=== PATIENT | male | born 1945 | race Caucasian/White ===

== ENCOUNTER 2017-08-09 14:13 | Inpatient (IN) | payer BC, MEDICARE ==
[2017-08-09] MEDS ORDERED: HEPARIN SODIUM,PORCINE 5,000 UNIT/ML 1 ML VIAL IV PRN (22:16)
[2017-08-09] MEDS ORDERED: HEPARIN SODIUM,PORCINE 5,000 UNIT/ML 1 ML VIAL IV ONE (22:16)
[2017-08-09 22:46] LABS: Basophils % (A) 0 %; Eosinophils # (A) 0.1 k/uL (0-0.7); Eosinophils % (A) 0 %; HCT 26.2 % (39.0-53.0); HGB 8.8 gm/dL (13.0-17.5); Lymphocytes # (A) 1.8 k/uL (1.0-4.8); Lymphocytes % (A) 9 %; MCH 31.6 pg (25.0-35.0); MCHC 33.7 g/dL (31.0-37.0); MCV 93.7 fL (80.0-100.0); Mean Platelet Volume 7.8; Monocytes # (A) 0.5 k/uL (0-1.0); Monocytes % (A) 2 %; Neutrophils % (A) 88 %; Platelet Count 263 k/uL (150-450); RDW 14.1 % (11.5-15.5); WBC 20.4 k/uL (3.8-10.6)
[2017-08-09] MEDS: MIRTAZAPINE 15 MG TAB PO SCH (22:56)
[2017-08-09] MEDS: FAMOTIDINE 20 MG TAB PO SCH (22:56)
[2017-08-09] MEDS: ATORVASTATIN 10 MG TAB PO SCH (22:56)
[2017-08-09] MEDS: HEPARIN SODIUM,PORCINE/D5W PMX 25,000 UNIT in DEXTROSE/WATER 1 500ML.BAG IV SCH (22:56)
[2017-08-09] MEDS: LACOSAMIDE 50 MG TABLET PO SCH (23:01)
[2017-08-09 23:29] LABS: Partial Thromboplastin Time 18.9 sec (22.0-30.0)
[2017-08-10 04:38] LABS: Basophils % (A) 0 %; Eosinophils # (A) 0.1 k/uL (0-0.7); Eosinophils % (A) 0 %; HCT 26.6 % (39.0-53.0); HGB 8.6 gm/dL (13.0-17.5); Lymphocytes # (A) 2.3 k/uL (1.0-4.8); Lymphocytes % (A) 12 %; MCH 31.4 pg (25.0-35.0); MCHC 32.2 g/dL (31.0-37.0); MCV 97.7 fL (80.0-100.0); Mean Platelet Volume 7.9; Monocytes # (A) 0.9 k/uL (0-1.0); Monocytes % (A) 5 %; Neutrophils # (A) 16.7 k/uL (1.3-7.7); Neutrophils % (A) 83 %; Platelet Count 251 k/uL (150-450); RBC 2.72 m/uL (4.30-5.90); RDW 14.3 % (11.5-15.5)
[2017-08-10] MEDS ORDERED: ALPRAZolam 0.25 MG TAB PO PRN (09:06)
[2017-08-10] MEDS ORDERED: NITROGLYCERIN SL TABS 0.4 MG TAB SUBLINGUAL PRN (09:06)
[2017-08-10] MEDS ORDERED: SODIUM CHLORIDE 0.9% 1,000 ML in EMPTY BAG 1 BAG IV ONE (09:06)
[2017-08-10] MEDS ORDERED: ASPIRIN 325 MG TAB PO STA (09:06)
[2017-08-10] MEDS ORDERED: ATORVASTATIN 80 MG TAB PO STA (09:06)
[2017-08-10] MEDS ORDERED: ALPRAZolam 0.5 MG TAB PO PRN (09:06)
[2017-08-10] MEDS: ASPIRIN 81 MG PO SCH (09:13)
[2017-08-10] MEDS: TAMSULOSIN 0.4 MG CAP.ER.24H PO SCH (09:26)
[2017-08-10] MEDS: DOCUSATE 100 MG CAP PO SCH (09:26)
[2017-08-10] MEDS: ISOSORBIDE MONONITRATE ER 30 MG TAB.ER.24H PO SCH (09:26)
[2017-08-10] MEDS: LACOSAMIDE 50 MG TABLET PO SCH ×2 (09:26→19:53)
[2017-08-10] MEDS: FAMOTIDINE 20 MG TAB PO SCH ×2 (09:26→19:53)
[2017-08-10] MEDS: VENLAFAXINE HCL 37.5 MG TAB PO SCH (09:26)
[2017-08-10] MEDS ORDERED: IPRATROPIUM-ALBUTEROL 3 ML NEB INHALATION PRN (12:17)
[2017-08-10 12:20] LABS: Glucose,Whole Blood 123 mg/dL (75-99)
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
[2017-08-10] MEDS ORDERED: IV FLUID CONTINUATION 1,000 ML IV ONE (14:10)
[2017-08-10] MEDS ORDERED: MIDAZOLAM 2 MG/2 ML VIAL ONE (14:28)
[2017-08-10] MEDS ORDERED: LIDOCAINE 2% INJ 20 MG/ML (20 ML MDV) ONE (14:28)
[2017-08-10] MEDS ORDERED: LIDOCAINE 2% INJ 20 MG/ML SQ ONE (14:31)
[2017-08-10] MEDS ORDERED: MIDAZOLAM 2 MG/2 ML VIAL IV ONE (14:32)
[2017-08-10] MEDS ORDERED: IOPAMIDOL-370 125ML BTL INJ ONE (14:49)
--- NOTE | 2017-08-10 15:26 | CC ---
CARDIAC CATHETERIZATION REPORT Mr. Rich was admitted to the [facility] with symptoms of chest pain. EKG shows intermittent T-wave inversions in the anterior leads. The cardiac enzymes were normal. In view of the significant EKG changes, patient was recommended to have a cardiac catheterization for definitive diagnosis. PROCEDURE: The right groin is prepped and draped in the usual manner and the skin was infiltrated with 2% Xylocaine. The right femoral artery was entered using Seldinger technique. A #6-Malay sheath was placed in. Selective coronary angiography was then performed in multiple projections and the left ventricular pressures were obtained. Sheath was removed and good hemostasis was achieved with the use of manual compression. HEMODYNAMICS: Left ventricular end-diastolic pressure is 16 to 20 mmHg prior to angiography. No gradient is noted across the aortic valve. SELECTIVE CORONARY ANGIOGRAPHY: Left main coronary artery is normally patent. LAD is a good caliber blood vessel and gives rise to two small size diagonal branch. Distal LAD is a small caliber blood vessel. Circumflex coronary artery gives rise to a high good-sized obtuse marginal branch. Circumflex coronary artery and its branches are normal. The right coronary artery has mild irregularity in its proximal portion and it gives rise to PDA and PLV branches which are normal. FINAL IMPRESSION: This study reveals mild coronary artery disease in the mid LAD and proximal right coronary artery. RECOMMENDATIONS: Medical treatment. MMODL / IJN: [id number] /
[2017-08-10] MEDS: IPRATROPIUM-ALBUTEROL 3 ML NEB INHALATION SCH ×2 (16:06→20:26)
[2017-08-10] MEDS ORDERED: RX INFO: IV CONTRAST WAS GIVEN 1 EACH MISC MISCELLANE PRN (16:28)
[2017-08-10] MEDS: ATORVASTATIN 10 MG TAB PO SCH (19:53)
[2017-08-10] MEDS: MIRTAZAPINE 15 MG TAB PO SCH (19:53)
[2017-08-10] MEDS: HEPARIN SODIUM,PORCINE/D5W PMX 25,000 UNIT in DEXTROSE/WATER 1 500ML.BAG IV SCH (21:16)
[2017-08-11 05:31] LABS: Basophils % (A) 0 %; Eosinophils # (A) 0.1 k/uL (0-0.7); Eosinophils % (A) 1 %; HCT 21.9 % (39.0-53.0); HGB 7.2 gm/dL (13.0-17.5); Lymphocytes # (A) 2.8 k/uL (1.0-4.8); Lymphocytes % (A) 39 %; MCH 31.8 pg (25.0-35.0); MCHC 32.8 g/dL (31.0-37.0); MCV 97.1 fL (80.0-100.0); Mean Platelet Volume 8.5; Monocytes # (A) 0.4 k/uL (0-1.0); Monocytes % (A) 5 %; Neutrophils # (A) 3.9 k/uL (1.3-7.7); Neutrophils % (A) 54 %; RBC 2.26 m/uL (4.30-5.90); RDW 15.3 % (11.5-15.5); WBC 7.2 k/uL (3.8-10.6)
[2017-08-11] MEDS: IPRATROPIUM-ALBUTEROL 3 ML NEB INHALATION SCH ×4 (08:20→19:38)
[2017-08-11 08:53] VITALS: RESP 18
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
[2017-08-11] MEDS: DOCUSATE 100 MG CAP PO SCH (10:21)
[2017-08-11] MEDS: TAMSULOSIN 0.4 MG CAP.ER.24H PO SCH (10:21)
[2017-08-11] MEDS: ASPIRIN 81 MG PO SCH (10:21)
[2017-08-11] MEDS: VENLAFAXINE HCL 37.5 MG TAB PO SCH (10:21)
[2017-08-11] MEDS: predniSONE 20 MG TAB PO SCH (10:21)
[2017-08-11] MEDS: FAMOTIDINE 20 MG TAB PO SCH ×2 (10:21→21:43)
[2017-08-11] MEDS: LACOSAMIDE 50 MG TABLET PO SCH ×2 (10:21→22:42)
[2017-08-11] MEDS: ISOSORBIDE MONONITRATE ER 30 MG TAB.ER.24H PO SCH (10:21)
--- NOTE | 2017-08-11 10:48 | P.PN ---
Subjective 69-year-old admitted here after he was [facility] Which Did Not Show Any Stent Table Atherosclerotic Vascular Disease Patient Is Cleared for Discharge from Cardiology Perspective but Patient Hemoglobin Did Go down from 8.1-7.2 There Is No Clinical GI Bleed That Is No Evidence of Acute Blood Loss Anemia Appears to Have Chronic Anemia. We Will Monitor Him One More Night for Any Bleeding Patient Lives by Himself. Patient All the Cleared by Cardiology to Be Discharged Patient Is Not in COPD Exacerbation at This Time Patient Was Treated for COPD Exacerbation at [facility]. Constitutional: Denied any fatigue denied any fever. Cardio vascular: denied any chest pain, palpitations Gastrointestinal denied any nausea vomiting Pulmonary: Denied any shortness of breath cough Neurologic denied any new focal deficits Objective - Vital Signs Vital signs: Vital Signs Temp 97.7 F 08/11/17 08:00 Pulse 66 08/11/17 08:00 Resp 18 08/11/17 08:00 BP 84/51 08/11/17 08:00 Pulse Ox 94 L 08/11/17 08:00 Intake & Output 08/10/17 08/11/17 08/11/17 18:59 06:59 18:59 Intake Total 566 0 Output Total 300 Balance 566 -300 0 Weight 82.5 kg Intake: IV 400 Intake, IV Titration 166 Amount Sodium Chloride 0.9% 1, 166 000 ml In Empty Bag 1 bag @ 1 ML/KG/HR 83 mls/hr IV .Q12H3M ONE Rx#: [id number] Oral 0 0 Output: Urine 300 Other: Voiding Method Urinal Incontinent # Voids 1 - Exam PHYSICAL EXAMINATION: GENERAL: The patient is alert and oriented x3, not in any acute distress. Well developed, well nourished. HEENT: Pupils are round and equally reacting to light. EOMI. No scleral icterus. No conjunctival pallor. Normocephalic, atraumatic. No pharyngeal erythema. No thyromegaly. CARDIOVASCULAR: S1 and S2 present. No murmurs, rubs, or gallops. PULMONARY: Chest is clear to auscultation, no wheezing or crackles. ABDOMEN: Soft, nontender, nondistended, normoactive bowel sounds. No palpable organomegaly. MUSCULOSKELETAL: No joint swelling or deformity. EXTREMITIES: No cyanosis, clubbing, or pedal edema. Right below knee amputation NEUROLOGICAL: Gross neurological examination did not reveal any new focal deficits. SKIN: No rashes. - Labs CBC & Chem 7: 08/11/17 05:01 Labs: Abnormal Lab Results - Last 24 Hours (Table) 08/10/17 08/10/17 08/11/17 Range/Units 11:17 12:18 05:01 RBC 2.26 L (4.30-5.90) m/uL Hgb 7.2 L (13.0-17.5) gm/dL Hct 21.9 L (39.0-53.0) % APTT 65.0 H (22.0-30.0) sec POC Glucose (mg/dL) 123 H (75-99) mg/dL Assessment and Plan Plan: -Chest pain with EKG changes: Patient underwent cardia catheterization which did not show any significant coronary atherosclerotic occlusive disease although patient is hypotensive etiology is not clear no evidence of acute GI bleed no evidence of acute blood loss anemia etiology of chronic anemia is unknown. Will monitor 1 more night because of hypotension hemoglobin being at borderline of 7. repeat basic metabolic profile and CBC. Patient also will be transferred [facility] -COPD: Was treated for acute exacerbation, not in COPD exacerbation at this time -Benign prostatic hypertrophy -Closed head injury with a history of seizures in the past and patient is on antiseizure medications which will be continued -Hypertension patient is actually hypotensive amlodipine will be held, M.D. will be discontinued heparin was discontinued. -Gastroesophageal reflux disease -Benign prostatic hypertrophic -Hyperlipidemia -Depression for which patient is on Effexor which will be continued
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
[2017-08-11] MEDS: MIRTAZAPINE 15 MG TAB PO SCH (21:42)
[2017-08-11] MEDS: ATORVASTATIN 10 MG TAB PO SCH (21:43)
[2017-08-11] MEDS: HEPARIN SODIUM,PORCINE/D5W PMX 25,000 UNIT in DEXTROSE/WATER 1 500ML.BAG IV SCH (21:44)
[2017-08-12] MEDS: IPRATROPIUM-ALBUTEROL 3 ML NEB INHALATION SCH ×2 (07:12→10:58)
[2017-08-12] MEDS: FAMOTIDINE 20 MG TAB PO SCH (09:33)
[2017-08-12] MEDS: ISOSORBIDE MONONITRATE ER 30 MG TAB.ER.24H PO SCH (09:33)
[2017-08-12] MEDS: TAMSULOSIN 0.4 MG CAP.ER.24H PO SCH (09:33)
[2017-08-12] MEDS: DOCUSATE 100 MG CAP PO SCH (09:33)
[2017-08-12] MEDS: VENLAFAXINE HCL 37.5 MG TAB PO SCH (09:33)
[2017-08-12] MEDS: predniSONE 20 MG TAB PO SCH (09:33)
[2017-08-12] MEDS: ASPIRIN 81 MG PO SCH (09:33)
[2017-08-12] MEDS: LACOSAMIDE 50 MG TABLET PO SCH (09:36)
[2017-08-12 09:38] LABS: Anisocytosis Slight; Basophils % (A) 0 %; Eosinophils # (A) 0.1 k/uL (0-0.7); Eosinophils % (A) 1 %; HCT 26.2 % (39.0-53.0); HGB 8.6 gm/dL (13.0-17.5); Lymphocytes # (A) 3.2 k/uL (1.0-4.8); Lymphocytes % (A) 28 %; MCH 32.4 pg (25.0-35.0); MCHC 32.8 g/dL (31.0-37.0); MCV 98.8 fL (80.0-100.0); Macrocytosis Slight; Mean Platelet Volume 7.1; Monocytes # (A) 0.6 k/uL (0-1.0); Monocytes % (A) 5 %; Neutrophils # (A) 7.6 k/uL (1.3-7.7); Neutrophils % (A) 65 %; Platelet Count 271 k/uL (150-450); RBC 2.66 m/uL (4.30-5.90); RDW 16.9 % (11.5-15.5); WBC 11.7 k/uL (3.8-10.6)
[2017-08-12 09:53] LABS: Anion Gap 10 mmol/L; Blood Urea Nitrogen 19 mg/dL (9-20); Calcium 8.3 mg/dL (8.4-10.2); Carbon Dioxide 22 mmol/L (22-30); Chloride 108 mmol/L (98-107); Glucose 83 mg/dL (74-99); Potassium 3.3 mmol/L (3.5-5.1); Sodium 140 mmol/L (137-145)
[2017-08-12] MEDS ORDERED: Potassium Replacement Protocol 1 EACH MISC MISCELLANE PRN (10:57)
[2017-08-12] MEDS: POTASSIUM CHLORIDE ER 20 MEQ TAB.ER PO SCH ×2 (12:58→14:26)
--- NOTE | 2017-08-12 14:04 | P.PN ---
Subjective Progress Note Date: 08/12/17 Mr. Rich is a pleasant 71-year-old male past medical history significant for COPD and seizure disorder. He underwent cardiac catheterization per Dr. Davis for symptoms of chest pain. The study revealed mild coronary artery disease withing the mid LAD and proximal RCA, medical therapy recommended. Amlodipine has been discontinued secondary to hypotension. Hgb has been running low, repeat today up to 8.6 from 7.2 yesterday. WBC 11.7 down from 20 on admission, platelets 271, sodium 140, potassium 3.3, creatinine 0.8 to. Blood pressure 95/58 heart rate 68 afebrile maintaining oxygen saturation on nasal cannula. He continues to be maintained on aspirin 81 mg daily, atorvastatin 10 mg daily and imdur 30 mg daily. Denies chest pain, shortness of breath, dizziness, nausea, vomiting or diaphoresis. Telemetry tracings unremarkable. Objective - Vital Signs Vital signs: Vital Signs Temp 97.4 F L 08/12/17 05:49 Pulse 70 08/12/17 11:09 Resp 18 08/12/17 05:49 BP 95/58 08/12/17 05:49 Pulse Ox 96 08/12/17 05:49 Intake & Output 08/11/17 08/12/17 08/12/17 18:59 06:59 18:59 Intake Total 1245 Output Total 1000 Balance 1245 -1000 Weight 88.5 kg Intake: Oral 1245 Output: Urine 1000 - Exam GENERAL: Well-appearing, well-nourished and in no acute distress. NECK: Supple without JVD or thyromegaly. LUNGS: Breath sounds clear to auscultation bilaterally. Respiration equal and unlabored. No wheezes, rales or rhonchi. HEART: Regular rate and rhythm without murmurs, rubs or gallops. S1 and S2 heard. EXTREMITIES: Normal range of motion, no edema. No clubbing or cyanosis. Peripheral pulses intact and strong. - Labs CBC & Chem 7: 08/12/17 08:35 08/12/17 08:35 Labs: Abnormal Lab Results - Last 24 Hours (Table) 08/12/17 08/12/17 Range/Units 08:35 08:35 WBC 11.7 H (3.8-10.6) k/uL RBC 2.66 L (4.30-5.90) m/uL Hgb 8.6 L (13.0-17.5) gm/dL Hct 26.2 L (39.0-53.0) % RDW 16.9 H (11.5-15.5) % Potassium 3.3 L (3.5-5.1) mmol/L Chloride 108 H (98-107) mmol/L Calcium 8.3 L (8.4-10.2) mg/dL Assessment and Plan Assessment: ASSESSMENT 1. Chest pain, atypical. Cardiac catheterization performed reveals mild CAD, medical therapy recommended. Imdur has been added. 2. Anemia, unknown etiology 3. History of hypertension maintained on amlodipine, currently hypotensive amlodipine being held. 4. History of right [id number] amputation 5. History of hepatitis C 6. COPD 7. Leukocytosis 8. Dyslipidemia PLAN Recommend holding Imdur for low blood pressure. Follow up with Dr. Davis in 1 week. Keep blood pressure log and take to follow up visit. Discussion for resuming amlodipine and imdur can be during follow up visit. Medical team to address etiology of anemia. Nurse Practitioner note has been reviewed, I agree with a documented findings and plan of care. Patient was seen and examined.
--- NOTE | 2017-08-12 14:41 | P.DS ---
Providers Date of admission: 08/09/17 20:02 Attending physician: Alysa Hinds Consults: 08/09/17 22:17 Consult Physician Routine Consulting Provider: Fernando Barrera Consult Reason/Comments: CHEST PAIN Do you want consulting provider notified?: Yes, Notify in am Placement Type Exists?: Yes Primary care physician: Alysa Hinds [facility] Course: 69-year-old admitted here after he was transferred from the [facility] Which Did Not Show Any Stent Table Atherosclerotic Vascular Disease Patient Is Cleared for Discharge from Cardiology Perspective but Patient Hemoglobin Did Go down from 8.1-7.2 There Is No Clinical GI Bleed That Is No Evidence of Acute Blood Loss Anemia Appears to Have Chronic Anemia. We Will Monitor Him One More Night for Any Bleeding Patient Lives by Himself. Patient All the Cleared by Cardiology to Be Discharged Patient Is Not in COPD Exacerbation at This Time Patient Was Treated for COPD Exacerbation at [facility]. 08/12/2017 Patient is feeling much better today and blood pressure improved to 90 systolic imbued will be discontinued amlodipine was discontinued patient's hemoglobin is 8.6. Patient declined any home care. PHYSICAL EXAMINATION: GENERAL: The patient is alert and oriented x3, not in any acute distress. Well developed, well nourished. HEENT: Pupils are round and equally reacting to light. EOMI. No scleral icterus. No conjunctival pallor. Normocephalic, atraumatic. No pharyngeal erythema. No thyromegaly. CARDIOVASCULAR: S1 and S2 present. No murmurs, rubs, or gallops. PULMONARY: Chest is clear to auscultation, no wheezing or crackles. ABDOMEN: Soft, nontender, nondistended, normoactive bowel sounds. No palpable organomegaly. MUSCULOSKELETAL: No joint swelling or deformity. EXTREMITIES: No cyanosis, clubbing, or pedal edema. Right below knee amputation NEUROLOGICAL: Gross neurological examination did not reveal any new focal deficits. SKIN: No rashes. Assessment and Plan Plan: -Chest pain with EKG changes: Patient underwent cardia catheterization which did not show any significant coronary atherosclerotic occlusive disease although -COPD: Was treated for acute exacerbation, not in COPD exacerbation at this time -Benign prostatic hypertrophy -Closed head injury with a history of seizures in the past and patient is on antiseizure medications which will be continued -Hypertension patient is actually hypotensive amlodipine will be discontinued -Gastroesophageal reflux disease -Benign prostatic hypertrophic -Hyperlipidemia -Depression for which patient is on Effexor which will be continued Plan - Discharge Summary New Discharge Prescriptions: New Budesonide-Formot 160-4.5 Mcg [Symbicort 160-4.5 Mcg Inhaler] 2 puff INHALATION BID #1 inhaler predniSONE 10 mg PO DAILY #30 tab Atorvastatin Calcium [Lipitor] 20 mg PO HS #30 tab Nitroglycerin Sl Tabs [Nitrostat] 0.4 mg SUBLINGUAL Q5M PRN #30 tab PRN Reason: Chest Pain Continue Venlafaxine HCl [Effexor] 37.5 mg PO DAILY Mirtazapine [Remeron] 15 mg PO HS Aspirin EC [Ecotrin Low Dose] 81 mg PO DAILY Lacosamide [Vimpat] 100 mg PO BID Atorvastatin [Lipitor] 10 mg PO HS Tamsulosin [Flomax] 0.4 mg PO DAILY Ranitidine HCl 150 mg PO BID Discontinued amLODIPine [Norvasc] 5 mg PO DAILY Discharge Medication List Mirtazapine [Remeron] 15 mg PO HS 11/27/14 [History] Venlafaxine HCl [Effexor] 37.5 mg PO DAILY 11/27/14 [History] Aspirin EC [Ecotrin Low Dose] 81 mg PO DAILY 08/09/17 [History] Atorvastatin [Lipitor] 10 mg PO HS 08/09/17 [History] Lacosamide [Vimpat] 100 mg PO BID 08/09/17 [History] Ranitidine HCl 150 mg PO BID 08/09/17 [History] Tamsulosin [Flomax] 0.4 mg PO DAILY 08/09/17 [History] Atorvastatin Calcium [Lipitor] 20 mg PO HS #30 tab 08/12/17 [Rx] Budesonide-Formot 160-4.5 Mcg [Symbicort 160-4.5 Mcg Inhaler] 2 puff INHALATION BID #1 inhaler 08/12/17 [Rx] Nitroglycerin Sl Tabs [Nitrostat] 0.4 mg SUBLINGUAL Q5M PRN #30 tab 08/12/17 [Rx ] predniSONE 10 mg PO DAILY #30 tab 08/12/17 [Rx] Follow up Appointment(s)/Referral(s): Fam Barlow DO [STAFF PHYSICIAN] - 08/19/17 11:15 am (Appointment with JON Bowling) Abdiel Davis MD [STAFF PHYSICIAN] - 08/15/17 2:15 pm (Tuesday) Patient Instructions/Handouts: *Surgery [facility] - After Heart Catheterization - Liquid Flavor Compounder Instructions, Left Heart Catheterization (DC) Activity/Diet/Wound Care/Special Instructions: Low fat diet. Activity as tolerated. Up with prosthetic. Fall precautions. Discharge Disposition: HOME SELF-CARE
[2017-08-12 15:07] VITALS: BP 93/61; PULSE 88; TEMP 97.3
== END 2017-08-12 15:09 | disposition home or self-care (01) | DRG 287 ==
LOC: 6SEL 20:02 → EEVIPCON 20:02 → 4MS4W 08-11 18:15
PROVIDERS: ADMIT Hospitalist; ATTEND Hospitalist
PROC: 4A023N7 Measurement of Cardiac Sampling and Pressure, Left Heart, Percutaneous Approach (ICD-10-PCS; principal; 2017-08-10 14:10)
PROC: B2111ZZ Fluoroscopy of Multiple Coronary Arteries using Low Osmolar Contrast (ICD-10-PCS; principal; 2017-08-10 14:10)
PROC: B2151ZZ Fluoroscopy of Left Heart using Low Osmolar Contrast (ICD-10-PCS; principal; 2017-08-10 14:10)
DX: R07.9 Chest pain, unspecified (principal); D64.9 Anemia, unspecified; D72.829 Elevated white blood cell count, unspecified; E78.5 Hyperlipidemia, unspecified; F32.9 Major depressive disorder, single episode, unspecified; G40.909 Epilepsy, unspecified, not intractable, without status epilepticus; I10 Essential (primary) hypertension; I25.10 Atherosclerotic heart disease of native coronary artery without angina pectoris; J44.9 Chronic obstructive pulmonary disease, unspecified; K21.9 Gastro-esophageal reflux disease without esophagitis; N40.0 Benign prostatic hyperplasia without lower urinary tract symptoms; Z79.82 Long term (current) use of aspirin; Z79.899 Other long term (current) drug therapy; Z87.891 Personal history of nicotine dependence; Z89.511 Acquired absence of right leg below knee; Z87.820 Personal history of traumatic brain injury; I95.9 Hypotension, unspecified; Z86.19 Personal history of other infectious and parasitic diseases
CPT/HCPCS: 71045; 80048; 85025; 85610; 85730; 93458; 94640

== ENCOUNTER → 2022-09-15 | Outpatient (CLI) | payer MEDICARE, OTHER ==
[2022-09-15 12:26] LABS: African American GFR (CKD) 83 (>60 ml/min/1.73 sqM); Blood Urea Nitrogen 14 mg/dL (9-20); Non-African American GFR(CKD) 72 (>60 ml/min/1.73 sqM)
--- NOTE | 2022-09-15 19:21 | CT ---
EXAMINATION TYPE: CT abdomen pelvis w con DATE OF EXAM: 09/15/2022 COMPARISON: Chest 07/27/2011 HISTORY: 76-year-old male C6 1, Malignant neoplasm of prostate. TECHNIQUE: Contiguous axial scanning of the abdomen and pelvis following administration of 100 ml Iso damian 300 IV contrast. Delayed images through the kidneys and coronal/sagittal reconstructions perform ed. CT DLP: 1317.3 mGycm Automated exposure control for dose reduction was used. FINDINGS: Heart normal size without pericardial effusion. LAD and RCA coronary artery calcifications are present. 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 Strandy atelectasis of the lower cami gs. There is a 1.2 cm posterior left basilar nodule that seems to contain some fat density. This makes a metastatic pulmonary nodule less likely. A hamartomatous possible. Reassess at follow-up. Small hiatal hernia. Nonspecific tiny 4 mm hypodensity lateral right liver lobe with small for accurate CT characterizatio n, probable tiny cyst. Portal venous system is patent. No biliary ductal dilatation. Gallbladder, right adrenal gland, right kidney, spleen, and pancreas within normal limits. A couple tiny benign cortical cysts in the left kidney measuring 8 mm. Nonspecific 9 mm left adrenal nodule was present back in 2011 suggesting a benign etiology such as a small adrenal adenoma. No dilated small bowel, free fluid, or free air. No mesenteric or retroperitoneal lymphadenopathy. Mild to moderate stool. Oral contrast progressed to the proximal sigmoid colon. Mild proximal to mid sigmoid diverticulosis. No pericolonic inflammatory change. Moderate atherosclerotic calcifications infrarenal abdominal aorta and moderate to severe within the iliac arteries. Suspect severe narrowing distal left common iliac artery and proximal right external iliac artery. Also distal right external iliac artery. Bladder urine distended. Prostate gland is enlarged and 4.5 cm wide. Suspect a high riding right test icle. No abnormal fluid collection in the pelvis or pelvic lymphadenopathy seen. Bones: Old healed fracture deformity right femoral neck. Suspect a focus of AVN posterior weightbeari ng aspect of the right femoral head measuring 2.0 cm. Mild degenerative change of both hips. Multiple chronic bilateral rib fracture deformities. No suspicious osseous lesion is identified. IMPRESSION: 1. PROSTATOMEGALY AT 4.5 CM WIDE. NO SUSPICIOUS LYMPHADENOPATHY OR MASS TO SUGGEST METASTATIC DISEASE . 2. A 1.2 CM POSTERIOR LEFT BASILAR PULMONARY NODULE IS SUSPECTED TO BE BENIGN GIVEN INTERNAL FAT. A P RECAUTIONARY SHORT INTERVAL FOLLOW-UP CAN BE CONSIDERED. 3. SUSPECT A BENIGN 9 MM LEFT ADRENAL ADENOMA GIVEN STABILITY BACK TO 2011. 4. SIGMOID DIVERTICULOSIS WITHOUT ACUTE DIVERTICULITIS. 5. SEGMENTAL SEVERE ATHEROSCLEROTIC NARROWING WITHIN THE ILIAC ARTERIES TENSION ABOVE. 6. OLD HEALED RIGHT FEMORAL NECK FRACTURE DEFORMITY WITH A 2 CM FOCUS OF RIGHT FEMORAL HEAD AVN. NO S UBARTICULAR COLLAPSE.
== END | disposition home or self-care (01) ==
LOC: RADCTMAIN 11:31
PROVIDERS: ATTEND Radiology Radiation Oncology
DX: C61 Malignant neoplasm of prostate (principal); N40.0 Benign prostatic hyperplasia without lower urinary tract symptoms; K57.30 Diverticulosis of large intestine without perforation or abscess without bleeding; I70.8 Atherosclerosis of other arteries
CPT/HCPCS: 82565; 84520; 74177; 36415; Q9967